=== PATIENT | male | born 1955 ===

== ENCOUNTER 2017-04-14 15:27 | Outpatient (CLI) | payer MEDICARE, OTHER | END 2017-04-14 15:28 | disposition home or self-care (01) | LOC: LABHHL 15:27 | PROVIDERS: ATTEND Internal Medicine Gastroenterology | DX: Z12.11 Encounter for screening for malignant neoplasm of colon (principal); K21.9 Gastro-esophageal reflux disease without esophagitis; K57.90 Diverticulosis of intestine, part unspecified, without perforation or abscess without bleeding; K30 Functional dyspepsia | CPT/HCPCS: 88305; 88342 ==